=== PATIENT | male | born 1960 | race Caucasian/White ===

== ENCOUNTER 2023-10-16 16:21 | Emergency (ER) | payer BC, OTHER ==
[~2023-10-16] VITALS: Ht 167.6 cm; Wt 103.4 kg
[2023-10-16 16:22] VITALS: BP_SYST 131; PULSE 80; RESP 18; TEMP 97.7; O2SAT 97
== END 2023-10-16 19:24 | disposition left against medical advice (07) ==
LOC: SED 16:21
DX: L02.212 Cutaneous abscess of back [any part, except buttock and flank] (principal); Z53.21 Procedure and treatment not carried out due to patient leaving prior to being seen by health care provider